=== PATIENT | female | born 1995 | race Caucasian/White ===

== ENCOUNTER 2018-12-08 01:20 | Inpatient (IN) | payer OTHER ==
[2018-12-08] MEDS ORDERED: Lidocaine 4% Topical Sol 50 ML BOT ONE (01:45)
[2018-12-08] MEDS ORDERED: Lorazepam 2 MG/ML VIAL ONE (02:06)
[2018-12-08] MEDS ORDERED: Ondansetron PF 4 MG/2 ML Vial IVP PRN (02:27)
[2018-12-08] MEDS ORDERED: Acetaminophen 325 MG TAB PO PRN (02:27)
[2018-12-08] MEDS ORDERED: Albuterol Sulfate 2.5 mg/3 ml Neb NEB PRN (02:27)
[2018-12-08] MEDS ORDERED: diphenhydrAMINE 50 MG/ML VIAL IVP PRN (02:27)
[2018-12-08] MEDS ORDERED: Ondansetron ODT 4 MG TAB PO PRN (02:27)
[2018-12-08 05:29] LABS: #Lymphocytes 0.6 thou/uL (1.20-3.40); #Monocytes 0.1 thou/uL (0.11-0.59); %Eosinophils 0.4 % (0.0-10.0); %Lymphocytes 5.3 % (21.0-51.0); %Monocytes 0.8 % (0.0-10.0); %Neutrophils 93.4 % (42.0-75.0); Hemoglobin 13.9 g/dL (12.0-16.0); Mean Corpuscular HGB CONC 32.2 g/dL (32.0-36.0); Mean Corpuscular Hemoglobin 30.2 pg (27.0-31.0); Mean Corpuscular Volume 93.9 fL (78.0-98.0); Mean Platelet Volume 6.7 fL (7.4-10.4); Platelet Count 256 thou/uL (130-400); RBC Distribution Width 11.5 % (11.5-14.5); White Blood Cell (WBC) Count 11.8 thou/uL (4.8-10.8)
--- NOTE | 2018-12-08 05:31 | PDOC.FPRHP ---
- History of Present Illness Chief Complaint: sob History of Present Illness: 23 years old female patient came to hospital after having a sudden onset sob, after eating outside, no alleviating factors, she also has a sound similar to stridor the symptoms were reported as severe, - Allergies/Adverse Reactions Allergies Allergy/AdvReac Type Severity Reaction Status Date / Time amoxicillin Allergy Anaphylaxis Verified 12/08/18 03:57 Penicillins Allergy Anaphylaxis Verified 12/08/18 03:57 - Home Medications Medication Instructions Recorded Confirmed Type Spironolactone [Aldactone] 25 mg PO DAILY 12/08/18 12/08/18 History - History PMHx: asthma PSHx: none FHx:reiewed and non contributory Social: no alcohol , no drugs no smoking history - Review of Systems General: denies: fever/chills, weight/appetite/sleep changes ENT: reports: other (stridor). denies: nasal congestion Respiratory: reports: cough, shortness of breath Cardiovascular: denies: chest pain, palpitation Gastrointestinal: denies: nausea, vomiting Skin: denies: rashes, lesions, jaundice, itching Musculoskeletal: denies: swelling Neurological: denies: syncope Psychological: reports: anxiety - Vital signs BP: [] HR: [] RR: [] Tmax: [] Pox: []% on [] Wt: [] - Physical Exam Constitutional: NAD, awake, alert and oriented, well developed HEENT: normocephalic and atraumatic, other (stridor) Neck: no JVD, no thyromegaly Heart: RRR, normal S1/S2, no edema Lungs: CTAB, no respiratory distress Abdomen: soft Musculoskeletal: normal structure Neurological: no focal deficit, CN II-XII intact, normal sensation Psychiatric: good judgment and insight FMR H&P: Results - Labs Result Diagrams: 12/08/18 04:53 Additional comment: reviewed FMR H&P: A/P - Problem List (1) Anaphylaxis Current Visit: Yes Status: Acute Priority: High Code(s): T78.2XXA - ANAPHYLACTIC SHOCK, UNSPECIFIED, INITIAL ENCOUNTER Qualifiers: Encounter type: initial encounter Qualified Code(s): T78.2XXA - Anaphylactic shock, unspecified, initial encounter Assessment and Plan: pt received anti H1/H2, epinephrine times 2 , IM, benadryl, solumedrol, symptoms have improved, will monitor closely, pt stillhas a sound that seems like a stridor however is not persistent and unclear if it has an organic etiology, given history of anxiety. might need to be discharged on an epipen given severity of allergies and recommendations for consultation with gravure printing machinist FMR H&P: Upper Level - Plan Date/Time: 12/08/18 0529 I, [], have evaluated this patient and agree with findings/plan as outlined by real estate intern resident. Pertinent changes/additions are listed here.
[2018-12-08 05:49] LABS: Anion Gap 12 mmol/L (10-20); BUN (Urea Nitrogen) 9 mg/dL (7.0-18.7); Calc. Creatinine Clearance 165 mL/min (70-130); Calcium 9.3 mg/dL (7.8-10.44); Carbon Dioxide 21 mmol/L (22-29); Chloride 110 mmol/L (98-107); Estimated GFR-MDRD Greater than 90; Glucose 143 mg/dL (70-105); Sodium 139 mmol/L (136-145)
[2018-12-08] MEDS ORDERED: Enoxaparin Sodium 40 MG/0.4 ML SYRINGE SC SCH (09:00)
--- NOTE | 2018-12-08 09:27 | CON ---
DATE OF CONSULTATION: HISTORY OF PRESENT ILLNESS: A 23-year-old obese female, who apparently was brought into the hospital with shortness of breath about 9:00 p.m. She and the boyfriend tells me that she ate some take, shortly thereafter, she started having some throat swelling, shortness of breath, and some wheezing. She was taken to some Urgent Care and then eventually transferred over here with the above symptoms. She is in the MICU for the reason for consultation. Initial blood pressure 122/65, pulse 118, saturations are 99% on room air with a respiratory rate of 24, and temperature 99. According to the friend present, she is nonsmoker, nondrinker. Did not use any drugs. She is a practice or student teacher. PAST MEDICAL HISTORY: Pertinent mainly for anxiety. PAST SURGICAL HISTORY: [place] teeth. CHRONIC MEDICATION: Aldactone 25. ALLERGIES: AMOXICILLIN AND PENICILLIN. REVIEW OF SYSTEMS: Otherwise, negative. PHYSICAL EXAMINATION: GENERAL: On examination, she appears to be in no acute distress. VITAL SIGNS: Temperature 99, pulse 80, blood pressure 130/79, and respirations 18. HEENT: Throat, negative. CHEST: Negative. No wheezing or crackles. CARDIAC: Normal S1 and S2. No gallops. ABDOMEN: No masses. IMPRESSION: 1. Presumed anaphylactic reaction. 2. Food of unknown etiology, though at this stage I see no distress. I see no physical findings to suspect any severe reaction. Her lab was unremarkable. 3. Presumed respiratory distress secondary to unknown food, asymptomatic at this time. PLAN: Pulmonary-rodriguez, nothing additional to offer. She was given Benadryl last night and Pepcid. Pulmonary will follow at a distance while she is in the MICU. Consultation note, 70 minutes, 50% direct patient care. Job ID: [id number]
[2018-12-08] MEDS: Famotidine/PF 20 mg/2ml Vial SLOW IVP SCH ×2 (09:28→20:56)
--- NOTE | 2018-12-08 21:17 | HP ---
PRIMARY CARE PHYSICIAN: Not reported. CODE STATUS: Full code. TIME OF EVALUATION: 02:30 a.m. CHIEF COMPLAINT: Shortness of breath. HISTORY OF PRESENT ILLNESS: A 23-year-old female patient with past medical history of no medical problems. The patient presented to the hospital after having an allergic reaction. She reported that could have been triggered by a meal that she had went to an outside with some friends, all of the sudden she started having swelling, shortness of breath with throat swelling, and difficulty swallowing. The symptoms were reported as severe on presentation. She was seen in [facility] where the patient received epinephrine, Benadryl, and Decadron nebulizers. The patient reported some improvement, but she is still having some sounds like stridor. For that reason, the patient was transferred to the hospital. During my examination, the sounds still present. We will monitor the patient overnight and treat accordingly. REVIEW OF SYSTEMS: CONSTITUTIONAL: No fever, chills, or generalized weakness. RESPIRATORY: The patient has some cough. No sputum production. The patient has shortness of breath. CARDIOVASCULAR: No chest pain or palpitation. GASTROINTESTINAL: No nausea, vomiting, diarrhea, or abdominal pain. INHALATION THERAPY AIDE: No dizziness, headache, or feeling lightheaded. GENITOURINARY: No burning on urination. EXTREMITIES: No leg swelling. ENT: The patient has some possible end-expiratory stridor. All other systems were reviewed and negative except for the findings mentioned above. PAST MEDICAL HISTORY: As mentioned in the HPI. PAST SURGICAL HISTORY: The patient has wisdom teeth surgery. PSYCHIATRIC HISTORY: Anxiety. SOCIAL HISTORY: The patient drinks socially every week. No drug use. No smoking history. KNOWN ALLERGIES: To penicillin. REPORTED MEDICATIONS: Spironolactone. PHYSICAL EXAMINATION: VITAL SIGNS: On presentation, blood pressure 120/65 with heart rate 119, respiratory rate was 24, and temperature 99.3. Pain was 2/10. Oxygen saturation was 99% on room air. GENERAL APPEARANCE: The patient is alert, oriented, no acute distress. HEENT: Eyes, normal conjunctivae. Moist oral mucosa. Anicteric. No JVD. RESPIRATORY: Bilateral air entry. No rales. No wheezes. Symmetric expansion except for the end-expiratory possible stridor. CARDIOVASCULAR: Normal rate and regular rhythm. No murmurs. No gallop. No edema. ABDOMEN: Soft. Normal bowel sounds. MUSCULOSKELETAL: Baseline range of motion and strength. SKIN: Warm and intact. No pallor. No rash. No redness. Capillary refill seems to be intact. NEURO: No evidence of any new focal weakness. Cranial nerves seem to be intact. PSYCH: The patient is in good mood. No anxiety. Optimal judgment. LABORATORY DATA: Labs are reviewed. The patient has a white count of 11.8, hemoglobin 13.9, and platelet count 256. Chemistry: Sodium 139, potassium 4.0, chloride 110, carbon dioxide 21, anion gap 12, BUN 9, creatinine 0.76, GFR greater than 90, glucose 143, and calcium 9.3. ASSESSMENT AND PLAN: The patient will be placed in the hospital for following medical problems: 1. Anaphylactic reaction. The patient will be placed on famotidine, diphenhydramine, albuterol, racemic epinephrine p.r.n. Symptoms have resolved as of now. We will monitor, we will treat accordingly. 2. Deep venous thrombosis prophylaxis. Job ID: [id number]
[2018-12-09 06:04] VITALS: BMI 32.1
[2018-12-09 07:08] VITALS: TEMP 97.9
--- NOTE | 2018-12-09 09:14 | PRG ---
DATE OF SERVICE: 12/09/2018 SUBJECTIVE: This morning, awake, responsive, no distress. No anaphylactic reaction. No sore throat. No hoarseness. No shortness of breath. OBJECTIVE: VITAL SIGNS: Saturations 97% on room air, temperature 97, blood pressure 100/61, pulse rate 118. CHEST: No wheezing or crackles. CARDIAC: Normal S1, S2. No gallops. ABDOMEN: No masses. IMPRESSION AND PLAN: 1. Unknown anaphylactic reaction to food. 2. History of allergic rhinitis. 3. Pulmonary rodriguez, she is stable enough to be discharged home. We will follow at a distance. Job ID: [id number]
--- NOTE | 2018-12-10 04:27 | DIS ---
DATE OF ADMISSION: 12/08/2018 DATE OF DISCHARGE: 12/09/2018 DISCHARGE DIAGNOSIS: Anaphylactic reaction suspected, resolving. CONSULTATIONS: Dr. Kimbrough with Pulmonology Service. PERTINENT LAB AND X-RAY FINDINGS: Basic metabolic profile within normal limits. CBC showed a white blood cell count of 11.8. HOSPITAL COURSE: The patient was admitted to the intermediate care unit after initially presenting with suspected anaphylactic reaction to unknown food ingestion. The patient received racemic epinephrine, Benadryl, and Solu-Medrol, and rapidly clinically improved. The patient was observed in the intermediate care unit without clinical decompensation and remained stable throughout the hospital course. The patient remained on room air throughout the hospital course without need for further aggressive intervention or airway management. I have examined the patient at the time of discharge and discussed followup instructions. The patient verbalized understanding and agreement, ready for discharge on 12/09/2018. DISCHARGE MEDICATIONS: Spironolactone 25 mg p.o. daily. FOLLOWUP: The patient may follow up with her primary care provider of choice after discharge. CONDITION ON DISCHARGE: Stable. ACTIVITY: Ad-matt. DIET: Regular. CODE STATUS: Full. DISPOSITION: Home, 12/09/2018. Job ID: [id number]
== END 2018-12-09 08:23 | disposition home or self-care (01) | DRG 916 ==
LOC: ERS 01:20 → IMCU/EMU 02:15
PROVIDERS: ADMIT Hospitalist; ATTEND Hospitalist
DX: T78.00XA Anaphylactic reaction due to unspecified food, initial encounter (principal); F41.9 Anxiety disorder, unspecified; E66.9 Obesity, unspecified; J30.9 Allergic rhinitis, unspecified; Z88.0 Allergy status to penicillin; Z88.1 Allergy status to other antibiotic agents; Z68.32 Body mass index [BMI] 32.0-32.9, adult
CPT/HCPCS: 31575; 36415; 80048; 85025; 96374; J1650; J2060; S0028